=== PATIENT | male | born 1975 | race Caucasian/White ===

== ENCOUNTER 2024-08-16 13:39 | Outpatient (AMB) | payer MEDICAID, SELFPAY ==
--- NOTE | 2024-08-16 13:42 | A.OFFVIS_ITS ---
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 He is a patient of ?. He is seen for the following urologic condition - anxiety about health - Vasectomy evaluation Vasectomy evaluation The patient presents for vasectomy consultation. 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 The youngest child is - 5 months out. His partner is aware and permissive for a vasectomy Current form of control is none currently. The vasectomy may be complicated due to a history of no complicating issues, inguinal hernia repair, orchidopexy, history of orchitis, orchiectomy. Patient education has been provided via [facility] video, via printed information, risks of failure, recovery time, bruising and potential pain syndrome have been stressed Discussion today focused on the presence of vasectomy and the risks, benefits and alternatives that are available. Vasectomy as intended as a permanent form of control. Printed information and literature was provided to the patient. Overall there is a one in 2500 failure rate. This can occur at any time after vasectomy. Risks were discussed highlighting hematoma, spermatocele, epididymal congestion, development of sperm antibodies, and development of chronic pain estimated between 1-5%. The procedure was reviewed in detail. Anatomical diagrams of the male genitalia were used to explain the location of the vas deferens. The vas deferens will be transected, the proximal end will be cauterized, a metal clip would be applied to separate the 2 vas deferens ends. It was explained the procedure will be done in the office and takes approximately 10-15 minutes. Less common problems that arise with vasectomy include hematoma, bleeding, allergic reaction to anesthetic, epididymal infection, epididymal congestion, scrotal discomfort, spermatic leak, spermatic granuloma and the possibility of antisperm antibodies. He understands these risks and wishes to proceed. Consent was signed at the office today. He also understands that it takes 12 weeks for sperm to fully clear the system. He will need to provide a semen sample at 12 weeks and if this is not clear a 2nd sample at 16 weeks. Medical clearance to stop using protection will only be provided if he satisfies published criteria for sperm clearance. . Review of Systems Const Denies chills and Denies fever(s) Card Reports no additional complaints and Denies syncope Resp Denies cough GI Denies abdominal pain and Denies heartburn Reports as per HPI and Denies change in libido Neuro Denies syncope Psych Denies change in libido Endo Denies change in libido Physical Exam Const General: cooperative, healthy appearing, comfortable and no acute distress Orientation/consciousness: patient oriented x3 HEENT Face and sinus: Yes normal facial exam Mouth: moist mucous membranes Neck Neck: Yes normal visual inspection, Yes full ROM and Yes trachea midline Chest Chest palpation & inspection: normal inspection of the chest Resp Effort & Inspection: normal respiratory effort, able to speak in complete sentences and no respiratory distress GI Inspection: Yes normal to inspection Back/Spine/Pelvis Cervical Spine: normal cervical lordosis Thoracic/Lumbar Spine: thoracic and lumbar spine normal to inspection Skin General skin exam: no rashes or lesions noted Neuro General: patient oriented x3, gait normal, tone normal and moves all extremities Extrem General: Yes normal to inspection and Yes capillary refill normal Assessment & Plan Assessment & Plan (1) Anxiety about health: Code(s): R45.89 - Other symptoms and signs involving emotional state Category: Medical Plan Plan vasectomy Medications: New acetaminophen-codeine 300-30 mg 1 tab PO Q8H 3 days 9 tabs 0RF R45.89 - Other symptoms and signs involving emotional state diazepam Take medication after arrival at office 2 mg PO BID 1 day PRN 2 tabs 0RF anxiety R45.89 - Other symptoms and signs involving emotional state Patient Instructions: Imaging studies, laboratory and physical exam results were discussed and reviewed in detail. No major barriers to patient understanding were identified. An opportunity to ask questions regarding the treatment plan was provided. All questions were answered. The patient expressed understanding and agreement with the above treatment plan. The patient is aware they should contact our office by phone for worsening of their current condition or the appearance of new urologic symptoms. Compliance is encouraged with any medications and followup testing that is ordered. It is a privilege to participate in the urologic care of your patient. If you have any questions or concerns regarding treatment for the above conditions, or other urologic issues, please do not hesitate to contact me. The office telephone contact is [phone]. This note is constructed using voice recognition software. While every effort has been made to ensure accuracy suture polisher errors may have been included. Yours sincerely, Dr Robbin Freitas MD, [facility] - Urology Providers of Expert, Compassionate Care for the Genitourinary System Coding Level of Care Code New Pt Level 4 (70169) Diagnoses Anxiety about health R45.89
== END 2024-08-16 14:34 | disposition home or self-care (01) ==
PROVIDERS: PCP Internal Medicine; Visit Provider Urology
DX: R45.89 Other symptoms and signs involving emotional state (principal)
CPT/HCPCS: 99204

== ENCOUNTER → 2024-08-16 13:39 | Outpatient (BNVA) | payer MEDICAID, SELFPAY | PROVIDERS: PCP Internal Medicine; Visit Provider Urology | DX: F41.8 Other specified anxiety disorders (principal); Z30.09 Encounter for other general counseling and advice on contraception | CPT/HCPCS: 99202 ==

== ENCOUNTER 2024-09-19 14:43 | Outpatient (AMB) | payer MEDICAID, SELFPAY ==
--- NOTE | 2024-09-19 15:46 | MHC.OFFVIS ---
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 He is a patient of ?. He is seen for the following urologic condition - anxiety about health - Vasectomy procedure Vasectomy procedure The patient presents for vasectomy procedure. 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 The youngest child is - 5 months out. His partner is aware and permissive for a vasectomy Current form of control is none currently Office Procedures Vasectomy Details: Preoperative diagnosis: Anxiety regarding Postoperative diagnosis: Anxiety regarding unplanned Procedure: Bilateral vasectomy Informed consent had been completed. Preoperative and postoperative instructions were provided to the patient. The patient has transportation to home identified at the completion of the procedure. Anti-anxiolytic prescription medication had been taken after consent verification and all questions answered. Tylenol with Codeine pain medication was also provided. The penis was elevated using a rubber band that was attached to the patient's shirt. Both vasa were palpated through the skin using a 3 finger technique and the penoscrotal junction was prepped with Betadine. After Betadine application the left vas was elevated using a 3 finger grasping technique. 1% lidocaine was used to create a subdermal bubble. Further anesthetic was then advanced using the 25-gauge needle along the vasa in a proximal fashion. Approximately 2 minutes were allowed to for local anesthetic uptake. Using the sharp spreading instrument the scrotal skin was spread longitudinally in line with the vasa until the subdermal layer had been divided. The vasa was then elevated from the scrotum using a ring clamp. Care was taken to elevate the superior portion of the vasa by rotating the ring clamp in a caudad direction. The battery powered cautery was used to divide the vasal sheath in a longitudinal direction on the exposed vasa and to strip the vasal sheath from the vasa. A 2nd narrower ring clamp was placed on the exposed vas and used to lift the vas from the vasal sheath. so it grasped the elevated vas. The cautery was used to divide vasal attachments and allow full exposure of a small loop of vasa. The sharp spreading instrument was then used to create a tunnel under the vasa and spread to allow the blood vessels of the vasa to retract from the vasa. A mosquito clamp was placed on the proximal portion of the vas. The battery-powered cautery was used to make a partial division in the proximal vas and then inserted in order to cauterize the proximal end of the vas. This was then cut and allowed to retract into the vasal sheath. The mosquito was then used to twist the vasa 180 degrees creating a fascial interposition. Using a 4-0 chromic suture the fascial interposition was sutured closed. The distal portion of the vas was then cut in order to obtain a segment of vasa. The vasa were allowed to retract back into the scrotum. A small snap was then used to approximate the skin edges and allow hemostasis without placement of a suture. A similar procedure was repeated on the right side. He tolerated the procedure well. Triple antibiotic was applied. A gauze was applied. An ice pack was applied to assist with minimizing swelling. Postoperative instructions were confirmed. He understands the need to continue to use control methods. A semen sample should be brought for inspection under the microscope in 10-12 weeks. CPT 10745 Vasectomy performed by: Robbin Freitas Informed consent given: Yes Informed consent signed: Yes Time out checklist: patient, procedure, site marked/identified, positioning of patient, supplies available, allergies confirmed and team agrees on procedure Anesthetic used: other Specimens: vas segments not sent to pathology 17368 - Vasectomy Assessment & Plan Assessment & Plan (1) Anxiety about health: Code(s): R45.89 - Other symptoms and signs involving emotional state Category: Medical Plan 12 week f/u Patient Instructions: Imaging studies, laboratory and physical exam results were discussed and reviewed in detail. No major barriers to patient understanding were identified. An opportunity to ask questions regarding the treatment plan was provided. All questions were answered. The patient expressed understanding and agreement with the above treatment plan. The patient is aware they should contact our office by phone for worsening of their current condition or the appearance of new urologic symptoms. Compliance is encouraged with any medications and followup testing that is ordered. It is a privilege to participate in the urologic care of your patient. If you have any questions or concerns regarding treatment for the above conditions, or other urologic issues, please do not hesitate to contact me. The office telephone contact is [phone]. This note is constructed using voice recognition software. While every effort has been made to ensure accuracy special machine operator errors may have been included. Yours sincerely, Dr Robbin Freitas MD, [facility] - Urology Providers of Expert, Compassionate Care for the Genitourinary System Coding Level of Care Code Procedure Only Diagnoses Anxiety about health R45.89 CPT Codes Office Procedure - CPT: 68643 - Vasectomy ([id number])
== END 2024-09-19 16:30 | disposition home or self-care (01) ==
PROVIDERS: PCP Internal Medicine; Visit Provider Urology
DX: Z30.2 Encounter for sterilization (principal); R45.89 Other symptoms and signs involving emotional state
CPT/HCPCS: 55250

== ENCOUNTER → 2024-09-19 14:43 | Outpatient (BNVA) | payer MEDICAID, SELFPAY | PROVIDERS: PCP Internal Medicine; Visit Provider Urology | DX: Z30.2 Encounter for sterilization (principal); R45.89 Other symptoms and signs involving emotional state | CPT/HCPCS: 55250 ==

== ENCOUNTER 2024-12-19 10:34 | Outpatient (AMB) | payer MEDICAID, SELFPAY ==
--- NOTE | 2024-12-19 10:45 | A.OFFVIS_ITS ---
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 He is a patient of ?. He is seen for the following urologic condition - anxiety about health - Vasectomy follow-up Did well postprocedure Slight pain left side No sperm seen on high-power field examination today P.r.n. follow-up Vasectomy follow-up The patient presents for vasectomy follow-up. 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 The youngest child is - 5 months out. His partner is aware and permissive for a vasectomy Current form of control is none currently Review of Systems Const Denies chills and Denies fever(s) Card Reports no additional complaints and Denies syncope Resp Denies cough GI Denies abdominal pain and Denies heartburn Reports as per HPI and Denies change in libido Neuro Denies syncope Psych Denies change in libido Endo Denies change in libido Physical Exam Const General: cooperative, healthy appearing, comfortable and no acute distress Orientation/consciousness: patient oriented x3 HEENT Face and sinus: Yes normal facial exam Mouth: moist mucous membranes Neck Neck: Yes normal visual inspection, Yes full ROM and Yes trachea midline Chest Chest palpation & inspection: normal inspection of the chest Resp Effort & Inspection: normal respiratory effort, able to speak in complete sentences and no respiratory distress GI Inspection: Yes normal to inspection Back/Spine/Pelvis Cervical Spine: normal cervical lordosis Thoracic/Lumbar Spine: thoracic and lumbar spine normal to inspection Skin General skin exam: no rashes or lesions noted Neuro General: patient oriented x3, gait normal, tone normal and moves all extremities Extrem General: Yes normal to inspection and Yes capillary refill normal Assessment & Plan Assessment & Plan (1) Anxiety about health: Code(s): R45.89 - Other symptoms and signs involving emotional state Category: Medical Plan P.r.n. Patient Instructions: This note is constructed using voice recognition software. While every effort has been made to ensure accuracy ethnic studies professor errors may have been included. Imaging studies, laboratory and physical exam results were discussed and reviewed in detail. No major barriers to patient understanding were identified. An opportunity to ask questions regarding the treatment plan was provided. All questions were answered. The patient expressed understanding and agreement with the above treatment plan. The patient is aware they should contact our office by phone for worsening of their current condition or the appearance of new urologic symptoms. Compliance is encouraged with any medications and followup testing that is ordered. It is a privilege to participate in the urologic care of your patient. If you have any questions or concerns regarding treatment for the above conditions, or other urologic issues, please do not hesitate to contact me. The office telephone contact is [phone]. Sincerely, Dr Robbin Freitas MD, [facility] - Urology Compassionate Specialist Care for the Genitourinary System Coding Level of Care Code Est Pt Level 3 (54322) Diagnoses Anxiety about health R45.89
== END 2024-12-19 11:22 | disposition home or self-care (01) ==
PROVIDERS: PCP Internal Medicine; Visit Provider Urology
DX: R45.89 Other symptoms and signs involving emotional state (principal)
CPT/HCPCS: 99213

== ENCOUNTER → 2024-12-19 10:34 | Outpatient (BNVA) | payer MEDICAID, SELFPAY | PROVIDERS: PCP Internal Medicine; Visit Provider Urology | DX: Z48.816 Encounter for surgical aftercare following surgery on the genitourinary system (principal); R45.89 Other symptoms and signs involving emotional state; Z98.52 Vasectomy status | CPT/HCPCS: 99212 ==